=== PATIENT | female | born 1970 | race Hispanic/Latino ===

== ENCOUNTER 2021-06-17 11:42 | Outpatient (CLI) | payer BC | END 2021-06-17 11:43 | disposition home or self-care (01) | LOC: CSHMAMMO 11:42 | PROVIDERS: ATTEND Family Medicine Sports Medicine | DX: Z12.31 Encounter for screening mammogram for malignant neoplasm of breast (principal) | CPT/HCPCS: 77063; 77067 ==

== ENCOUNTER 2021-08-16 19:08 | Emergency (ER) | payer BC ==
[2021-08-16] MEDS ORDERED: diphenhydrAMINE 50 MG/ML VIAL ONE (21:24)
[2021-08-16] MEDS ORDERED: Ketorolac Tromethamine 30 MG/ML VIAL ONE (21:24)
[2021-08-16] MEDS ORDERED: Metoclopramide HCl 10 MG/2 ML VIAL ONE (21:25)
[2021-08-16 21:27] LABS: #Neutrophils 5.5 10x3/uL (1.5-8.4); %Basophils 0.4 % (0.0-2.0); %Eosinophils 0.5 % (0.0-6.0); %Lymphocytes 15.3 % (18.0-47.0); %Monocytes 13.3 % (0.0-10.0); %Neutrophils 70.2 % (40.0-75.0); Hemoglobin 12.7 g/dL (12.0-15.5); Mean Corpuscular HGB CONC 32.7 g/dL (32.0-36.0); Mean Corpuscular Volume 82.6 fl (81.6-98.3); Mean Platelet Volume 10.7 fl (7.4-10.4); Platelet Count 205 10x3/uL (150-450); RBC Distribution Width 13.4 % (11.5-14.5); White Blood Cell (WBC) Count 7.8 10x3/uL (3.5-10.5)
[2021-08-16 21:40] LABS: ALT (SGPT) 24 U/L (8-55); AST (SGOT) 20 U/L (5-34); Albumin 4.2 g/dL (3.5-5.0); Alkaline Phosphatase 75 U/L (40-110); Anion Gap 12 mmol/L (10-20); BUN (Urea Nitrogen) 7 mg/dL (7.0-18.7); Bilirubin, Total 0.3 mg/dL (0.2-1.2); Calc. Creatinine Clearance 0 mL/min (70-130); Calcium 9.4 mg/dL (7.8-10.44); Carbon Dioxide 25 mmol/L (22-29); Chloride 100 mmol/L (98-107); Estimated GFR 92; Globulin 3.5 g/dL (2.4-3.5); Glucose 105 mg/dL (70-105); Potassium 3.4 mmol/L (3.5-5.1); Protein, Total 7.7 g/dL (6.0-8.3); Sodium 134 mmol/L (136-145)
[2021-08-16 21:47] LABS: SARS-CoV-2 NAA Rapid Test DETECTED (NotDetected)
== END 2021-08-16 22:16 | disposition home or self-care (01) ==
LOC: CSHERS 19:08
DX: U07.1 COVID-19 (principal)
CPT/HCPCS: 71045; 80053; 85025; 96374; 96375; J1200; J1885; J2765; U0002

== ENCOUNTER 2021-11-20 12:34 | Emergency (ER) | payer BC, SELFPAY ==
[2021-11-20] MEDS ORDERED: Ibuprofen 200 MG TAB ONE (13:17)
[2021-11-20] MEDS ORDERED: Acetaminophen 500 MG TAB ONE (13:18)
== END 2021-11-20 14:00 | disposition home or self-care (01) ==
LOC: CSHERS 12:34
DX: B34.9 Viral infection, unspecified (principal); I10 Essential (primary) hypertension; Z20.822 Contact with and (suspected) exposure to COVID-19
CPT/HCPCS: 99284; U0003; U0005

== ENCOUNTER 2023-04-06 15:00 | Outpatient (CLI) | payer BC | END 2023-04-06 15:01 | disposition home or self-care (01) | LOC: CSHMAMMO 15:00 | PROVIDERS: ATTEND Family Medicine Sports Medicine | DX: Z12.31 Encounter for screening mammogram for malignant neoplasm of breast (principal); N63.21 Unspecified lump in the left breast, upper outer quadrant | CPT/HCPCS: 77063; 77067 ==

== ENCOUNTER 2024-09-29 13:56 | Outpatient (CLI) | payer BC | END 2024-09-29 13:57 | disposition home or self-care (01) | LOC: CSHMAMMO 13:56 | PROVIDERS: ATTEND Family Medicine Sports Medicine | DX: N64.89 Other specified disorders of breast (principal) | CPT/HCPCS: G0279 ==